=== PATIENT | male | born 1950 | race Caucasian/White ===

== ENCOUNTER 2019-04-06 07:39 | Inpatient (IN) ==
--- NOTE | 2019-03-05 15:51 | PAT Medication Instructions ---
Medication Instructions Date of Service March 05, 2019 Home Medications aspirin 81 mg PO QAM cyclobenzaprine 5 mg PO TID PRN hydrocodone-acetaminophen 1 - 2 tab PO Q6H PRN krill oil 1 cap PO QAM lisinopril 20 mg PO QAM lorazepam 0.5 mg PO BID PRN meloxicam 15 mg PO DAILY PRN metoprolol succinate 25 mg PO QAM pantoprazole 40 mg PO QAM tamsulosin 0.4 mg PO QAM ASK your surgeon for instructions meloxicam 15 mg PO DAILY PRN STOP taking 2 weeks before surgery (or as soon as possible if surgery is within 2 weeks) krill oil 1 cap PO QAM DO NOT take the morning of surgery cyclobenzaprine 5 mg PO TID PRN lisinopril 20 mg PO QAM Take morning of surgery With a small sip of water, OTHERWISE NOTHING TO EAT OR DRINK AFTER MIDNIGHT: aspirin 81 mg PO QAM hydrocodone-acetaminophen 1 - 2 tab PO Q6H PRN (okay to take up to 4 hours prior to surgery if needed) lorazepam 0.5 mg PO BID PRN (if needed) metoprolol succinate 25 mg PO QAM pantoprazole 40 mg PO QAM tamsulosin 0.4 mg PO QAM Take evening before surgery cyclobenzaprine 5 mg PO TID PRN (if needed) hydrocodone-acetaminophen 1 - 2 tab PO Q6H PRN (if needed) lorazepam 0.5 mg PO BID PRN (if needed) Other Notes If you have any questions please call us at [phone] or [phone] or [phone] or [phone]
--- NOTE | 2019-03-08 08:39 | Anesthesiology Consultation ---
Date of Service March 08, 2019 Assessment & Plan (1) Encounter for pre-operative examination: CARDIO CLEARANCE 03/15: "Mr. Hollingsworth is cleared at an intermediate cardiac risk for surgery with Dr. White." Chart Review Chart Review: Acceptable Risk for Surgery and Patient seen in Pre Admission Testing Teaching & Discussion Instructed NPO after midnight before surgery, except medications with 15 cc of water. Medication instructions provided according to the PAT guidelines. History Surgery Operation Date: 04/06/19 12:20 Proposed Procedures p Right Total Knee Arthroplasty - Sal White MD Height/Weight Height: 5 ft 11 in Weight: 147.5 kg Allergies Allergy/AdvReac Type Severity Reaction Status Date / Time No Known Allergies Allergy Unverified 03/05/19 14:00 Medications Home Medications Medication Instructions Recorded Confirmed Last Taken aspirin 81 mg PO QAM 03/05/19 03/05/19 Unknown cyclobenzaprine 5 mg PO TID PRN 03/05/19 03/05/19 Unknown hydrocodone-acetaminophen 1 - 2 tab PO Q6H PRN 03/05/19 03/05/19 Unknown krill oil 1 cap PO QAM 03/05/19 03/05/19 Unknown lisinopril 20 mg PO QAM 03/05/19 03/05/19 Unknown lorazepam 0.5 mg PO BID PRN 03/05/19 03/05/19 Unknown meloxicam 15 mg PO DAILY PRN 03/05/19 03/05/19 Unknown metoprolol succinate 25 mg PO QAM 03/05/19 03/05/19 Unknown pantoprazole 40 mg PO QAM 03/05/19 03/05/19 Unknown tamsulosin 0.4 mg PO QAM 03/05/19 03/05/19 Unknown Past Medical History Medical History Anxiety Atrial fibrillation Rate controlled on BB. On ASA 81mg. CHADSVASC is 2 but Pt declines anticoagulation 2/2 bleeding hemorrhoids. BPH (benign prostatic hyperplasia) Degenerative disc disease Hyperlipidemia BORDERLINE Hypertension Morbid obesity Osteoarthritis Spinal stenosis Past Family History Family History Mother Family hx of colon cancer Past Surgical History Surgical History Fusion of spine CERVICAL History of arthroscopy RT KNEE History of cardiac cath 2 YEARS AGO (NO STENTS) [facility] History of cataract surgery RT History of colonoscopy History of tonsillectomy History of tooth extraction Past Anesthesia History No Hx of Anesthesia Complications and No Family Hx of Anesthesia Complications History of PONV No Motion Sickness Screening History of Motion Sickness: Yes Social History Smoking Status: Former smoker Do You Dip or Chew Tobacco: No Smoking End Date: 10 YEARS AGO Hx Alcohol Use: Yes Alcohol type: beer alcohol intake frequency: a few times a month Hx Substance Use: No substance use type: does not use Exercise / Class Metabolic Activity III < 4 Walking/Shop/Light housework (+mild SOB with 1 FOS occ, denies CP) Review of Systems Pt denies any recent chest pain, shortness of breath, palpitations, cough, fever or URI. Physical Exam Vital Signs BP: 134/98 P: 77bpm SPO2: 95% RA T: 97.9 F R: 18 Constitutional + morbidly obese ENMT Mouth: + dental restorations (partial upper and lower); no chipped teeth and no loose teeth Thyromental Distance: < 3.5 Finger Breadths (3) Mallampati Class: III Neck + short neck, + thick neck and + limited neck extension (limited due to fusion) Respiratory normal respiratory effort Auscultation: lungs clear to auscultation bilaterally Cardiovascular Rate/Rhythm: regular rate; + abnormal rhythm Heart Sounds: + murmur (I/ systolic RSB) Vessels: no carotid bruit Extremities: no edema Irregularly irregular rhythm, distant heart sounds. Testing Electrocardiogram Date: 03/08/19 Findings: + AFIB @ (85) Chest X-Ray Date: 03/08/19 Findings: + NAD Echocardiogram Date: 03/26/19 EF: 55-60% Normal LV size and systolic function. Moderate concentric LVH. Grade 1 diastolic dysfunction. Normal RV size and function. Mild right atrial enlargement. No significant valvular stenosis or regurgitation. Stress Test Date: 03/23/19 Type: nuclear Pharmacologic stress nuclear study is normal. Normal SPECT perfusion imaging. No significant ischemia detected. No evidence of infarct. Stress EKG test results normal. LV function not assessed due to arrhythmia. Cardiac Catheterization Date: 05/22/17 Left main distal 40% stenosis. LAD is a medium to large sized vessel, calibrated with proximal eccentric focal area of 40 to 50% stenosis. Left circ umflex artery is medium size vessel with focal area of 40% stenosis. RCA is a medium to large sized vessel, dominant with diffuse long mid 50% stenosis followed by another area of 70% stenosis. Impression: Moderate three-vessel CAD with left ventricular ejection fraction of 60%. Plan: medical therapy. Laboratory Results 03/08/19 09:11 03/08/19 09:11 PT 10.2 Seconds (9.0-12.0) 03/08/19 09:11 INR 1.0 (0.9-1.1) 03/08/19 09:11 APTT 30.2 Seconds (21.0-31.0) 03/08/19 09:11 Blood Type O Positive 03/08/19 09:11 Antibody Screen NEGATIVE 03/08/19 09:11
--- NOTE | 2019-03-08 10:02 | XRay Report ---
XR chest 2V routine CLINICAL HISTORY: Pre-op, h/o tobacco use, SOB COMPARISON STUDY: No previous studies for comparison. FINDINGS: Postoperative findings within the cervical spine are incidentally noted. There is no pneumo thorax or pleural effusion. There is no consolidation or evidence for pulmonary edema. Cardiac size i s at the upper limits of normal. IMPRESSION: No acute cardiopulmonary findings. Electronically signed by: Suresh Cash M.D. 03/08/2019 10:01 AM
[2019-03-08 10:56] LABS: Basophils # (auto) 0.05 K/uL (0-0.2); Basophils % (auto) 0.8 %; Eosinophils # (auto) 0.19 K/uL (0-0.5); Eosinophils % (auto) 3.2 %; Immature Granulocytes # (auto) 0.02 K/uL (0.00-0.02); Immature Granulocytes % (auto) 0.3 %; Lymphocytes # (auto) 1.26 K/uL (1.2-3.4); Mean Corpuscular Hgb Conc 34.9 g/dL (32-36); Mean Corpuscular Volume 89.6 fL (80-100); Mean Platelet Volume 10.2 fL (7.4-10.4); Monocytes # (auto) 0.49 K/uL (0.11-0.59); Monocytes % (auto) 8.2 %; Neutrophils % (auto) 66.5 %; Platelet Count 257 K/uL (130-400); RDW Coefficient of Variation 13.4 % (11.5-14.5); RDW Standard Deviation 43.6 fL (36.4-46.3); White Blood Count 6.01 K/uL (4.8-10.8)
[2019-03-08 11:18] LABS: Partial Thromboplastin Ratio 1.1; Partial Thromboplastin Time 30.2 Seconds (21.0-31.0); Prothrombin Time 10.2 Seconds (9.0-12.0)
[2019-03-08 11:28] LABS: BUN Creatinine Ratio 16.1 (10-20); Calcium 9.1 mg/dl (8.5-10.1); Creatinine Clr Calc Pharmacy 89.6 ml/min; Est GFR (African American) 75.9; Est GFR (Non-African American) 65.5; Potassium 4.4 mmol/L (3.5-5.1)
--- NOTE | 2019-04-03 10:08 | History and Physical Report ---
DATE OF ADMISSION: 04/06/2019 CHIEF COMPLAINT: Right knee pain. HISTORY OF PRESENT ILLNESS: The patient is a 68-year-old gentleman who presents for surgical treatment of his right knee. He has got a long history of right knee problems dating back to a knee arthroscopy back in the . This was done by Dr. Mayberry. He has had on and off pain for the past 10-15 years, but it has gotten worse over the past 4 years. He describes global pain. The more he walks, the more it hurts. His walking tolerance is a couple blocks. He has had the injections which provided temporary relief only. Nothing long lasting. He has nighttime pain. He would like to have his right knee fixed. PAST MEDICAL HISTORY: 1. Hypertension. 2. Anxiety/depression. 3. Obesity with a BMI of 45. 4. Atrial fibrillation. PAST SURGICAL HISTORY: Includes: 1. Neck surgery in 2007. 2. Pinched nerve surgery in 1986. 3. Right knee arthroscopy in . 4. Tonsillectomy. ALLERGIES: None. CURRENT MEDICINES: 1. Tamsulosin 0.4 mg once a day. 2. Pantoprazole 40 mg a day. 3. Lisinopril 20 mg. 4. Metoprolol 25 mg. 5. Baby aspirin 81 mg. 6. Hydrocodone 2-4 tablets a day for his back. 7. Cyclobenzaprine 5 mg a day. 8. Meloxicam 15 mg. 9. Lorazepam 0.5 mg a day. 10. Eliquis - 5mg per day SOCIAL HISTORY: A 68-year-old male patient from [place]. He is retired. He is . Rare alcohol intake. Does not smoke. FAMILY HISTORY: Significant for heart disease and bowel cancer. REVIEW OF SYSTEMS: Significant for obesity with a BMI of 45. Denies any chest pain or shortness of breath. No history of DVT or PE. No known bleeding problems. He does have musculoskeletal aches and pains. PHYSICAL EXAMINATION: GENERAL: Reveals a very large middle-aged male. Looks to be in reasonably good health. HEENT: Benign. NECK: Supple. No lymphadenopathy. LUNGS: Clear to auscultation. HEART: Regular rate and rhythm. ABDOMEN: Soft, nontender, nondistended. EXTREMITIES: Grossly neurovascularly intact except as follows: Examination of the right knee reveals patient walks with bit of a limp. He has got varus alignment to his knee with a varus thrust with weightbearing. Small knee effusion. He is tender over the medial joint line. Range of motion is 5-120. No instability. No pain with hip motion. X-RAYS: X-ray of the right knee reviewed. Shows advanced medial compartment arthritis. He has got complete loss of his medial joint space. He has subchondral sclerosis. He has got osteophytes off the medial femoral condyle and medial tibial plateau. ASSESSMENT: A 68-year-old male with advanced right knee degenerative joint disease with a history of knee arthroscopy many years ago. He has failed conservative treatment and would like to have his right knee replaced. PLAN: We will take him to the operating room and do a right total knee replacement. The risks and benefits of this procedure were explained to the patient including but not limited to DVT, PE, , infection, neurological injury, vascular injury, bleeding problem, pain, limited range of motion, stiffness, failure to relieve symptoms, incomplete relief of symptoms, need for further surgery in future, fracture, leg length inequality, nerve palsy, etc. The patient understands and desires to proceed. Informed consent was obtained. We did talk to the patient about holding his lisinopril the morning of surgery and make sure he takes the metoprolol. He will stop Eliquis 72 hours pre-op. He is planning to be discharged to home. MARIA VICTORIA
[~2019-04-06 07:39] MED LIST: ACETAMINOPHEN 500 MG TAB PO SCH; BUPIVACAINE 0.5 % 5 MG/1 ML PF 10ML VIAL ONE; BUPIVACAINE LIPOSOME/PF 266 MG, BUPIVACAINE/EPINEPHRINE 50 ML, SODIUM CHLORIDE 0.9% 30 ... INFIL SCH; CEFAZOLIN 3000MG 65 ML IV SCH; FAMOTIDINE 20 MG TAB PO SCH; GABAPENTIN 300 MG PO SCH; LR 500ML BOLUS, THEN 15ML/HR IV SCH; LR 60ML/HR IV SCH; METOCLOPRAMIDE HCL 10 MG TABLET PO SCH; ROPIVACAINE 0.5% 5 MG/ML 30 ML VIAL ONE
--- OUTSIDE RECORDS SUMMARY | 2019-04-06 07:46 | External Medical Summary | Continuity of Care Document ---
:1950 Author Name Ismael Saba Address Unavailable Unavailable , Care Team Providers Name Role Phone Baudilio Saba, I. 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) BPH (benign prostatic hypertrophy) with urinary obstruction (600.01) (N40.1) Slowing of urinary stream (788.62) (R39.198) Nocturia (788.43) (R35.1) Allergies and Adverse Reactions No Known Drug Allergies (Allergy) Medications HYDROcodone-Acetaminophen 5-325 MG Oral Tablet Refills: 0 LORazepam 0.5 MG Oral Tablet Refills: 0 Toprol XL 25 MG Oral Tablet Extended Release 24 Hour Refills: 0 Vitamin D TABS Refills: 0 Aspirin 81 TBEC Refills: 0 Procedures History of Neck Surgery Status: Complete d History of Knee Surgery Status: Complete d Immunizations Immunizations not documented Family History Father Family history of cardiac disorder (V17.49) (Z82.49) Status: Active Family history of hypertension (V17.49) (Z82.49) Status: Act fidel Mother Family history of hypertension (V17.49) (Z82.49) Status: Act fidel Family history of Bowel cancer (159.0) (C26.0) Status: Activ e Social History - Smoking Status Former smoker Interventions Follow-ups/ReferralsFollow-up visit in 1 month; Done: 09 Apr 2017 Plan of Treatment Planned Observations Planned Goals not documented Results No Known Results Results not documented Encounters Appointment; Urology, Room 8 09-Apr-2017 15:30 Encounter Diagnosis: Problem not documented Appointment; Robbie Astudillo M.D. 09-Apr-2017 15:40 Encounter Diagnosis: Problem not documented
--- NOTE | 2019-04-06 08:53 | History & Physical Bridge Note ---
Date of Service April 06, 2019 History & Physical Bridge Note I have examined the patient, reviewed the History & Physical and in the interval since the performance of the History & Physical I have noted the following changes of clinical significance: no changes noted
[2019-04-06] MEDS ORDERED: MIDAZOLAM HCL 1 MG/ML 2ML VIAL ONE ×3 (09:45→12:55)
[2019-04-06] MEDS ORDERED: fentaNYL citrate 100 MCG/2 ML VIAL ONE ×2 (09:45→13:46)
[2019-04-06] MEDS ORDERED: BUPIVACAINE LIPOSOME 1.3% 266 MG/20 ML VIAL ONE (11:26)
[2019-04-06] MEDS ORDERED: SODIUM CHLORIDE 0.9% PF 50 ML VIAL ONE (11:26)
[2019-04-06] MEDS ORDERED: EPINEPHrine INJ 1 MG/ML AMP ONE (11:27)
[2019-04-06] MEDS ORDERED: BUPIVACAINE 0.25% 30 ML VIAL ONE (11:27)
[2019-04-06] MEDS ORDERED: BACITRACIN INJ 50,000 UNIT VIAL ONE (11:27)
[2019-04-06] MEDS ORDERED: PROPOFOL IV EMULSION 10 MG/ML 20 ML VIAL IV ONE (11:51)
[2019-04-06] MEDS ORDERED: PHENYLEPHRINE 100MCG/ML 5ML SYR ONE (12:05)
[2019-04-06] MEDS ORDERED: ePHEDrine sulfate 50 MG/ML SYR ONE (12:12)
--- NOTE | 2019-04-06 13:23 | Post Operative Brief Note ---
Immediate Post Op Note v1 Date of Surgery April 06, 2019 Pre & Post Diagnosis Operation Date: 04/06/19 10:40 Pre-Op Diagnosis: Right Knee- Advanced Degenerative Joint Disease Post-Op Diagnosis: Right Knee- Advanced Degenerative Joint Disease Procedure Operation Date: 04/06/19 10:40 Actual Procedures p Right Total Knee Arthroplasty(Right) - Sal White MD Surgeon Sal White MD Foot Tender Dirk, PAC Estimated Blood Loss 50 Findings Consistent with Post-Op Diagnosis Fluids 1200 cc Specimens Right Knee Drains Gonzalez Catheter (16French gonzalez catheter inserted by Bert Cavazos PA-C without difficulty. Clear yellow urine obtained- Anesthesia to monitor) Anesthesia Type Spinal MAC Complications none Disposition Accompanied Patient To Recovery: No Disposition: Recovery Room
[2019-04-06] MEDS: fentaNYL citrate 100 MCG/2 ML VIAL IV PRN ×2 (13:46→13:51)
[2019-04-06] MEDS ORDERED: ePHEDrine sulfate 50 MG/ML AMP IV PRN (13:48)
[2019-04-06] MEDS ORDERED: ATROPINE SULFATE 0.1 MG/ML 10ML SYR IV PRN (13:48)
[2019-04-06] MEDS ORDERED: HYDROmorphone INJ 2 MG/ML SYR/VIAL IV PRN (13:48)
--- NOTE | 2019-04-06 14:00 | XRay Report ---
XR knee RT 2V routine CLINICAL HISTORY: Surgical Post Op COMPARISON: 03/05/2019 DISCUSSION: There are postsurgical changes of a total right knee arthroplasty and patellar resurfacin g. There is air within soft tissues consistent with recent surgery. There are overlying skin trae. The femoral and tibial components appear well seated. IMPRESSION: Postsurgical changes of a total right knee arthroplasty Electronically signed by: Rhys Agrawal M.D. 04/06/2019 1:59 PM
[2019-04-06] MEDS ORDERED: TAMSULOSIN HCL 0.4 MG CAP PO PRN (14:38)
[2019-04-06] MEDS ORDERED: BISACODYL 10 MG SUPP PR PRN (14:38)
[2019-04-06] MEDS ORDERED: CYCLOBENZAPRINE HCL 5 MG TAB PO PRN (14:38)
[2019-04-06] MEDS ORDERED: ALUMINUM/MAGNESIUM SUSP 30 ML UDC PO PRN (14:38)
[2019-04-06] MEDS ORDERED: MAGNESIUM HYDROXIDE SUSP 30 ML UDC PO PRN (14:38)
[2019-04-06] MEDS ORDERED: NALOXONE HCL 0.4 MG/1 ML VIAL/CARP IV PRN (14:38)
[2019-04-06] MEDS ORDERED: LORazepam 0.5 MG TAB PO PRN (14:38)
[2019-04-06] MEDS ORDERED: OXYCODONE HCL IR 5 MG TAB (IMMEDIATE RELEASE) PO PRN (14:38)
[2019-04-06] MEDS ORDERED: ONDANSETRON INJ 2 MG/ML 2 ML VIAL IV PRN (14:38)
[2019-04-06] MEDS ORDERED: METOCLOPRAMIDE HCL INJ 5 MG/ML 2 ML VIAL IV PRN (14:38)
--- NOTE | 2019-04-06 14:41 | Anesthesiology Progress Note ---
Date of Service April 06, 2019 Anesthesia Post Procedure Vital Signs Vital Signs: Temp Pulse Pulse Resp BP BP Pulse Ox 04/06/19 14:15 36.3 C L 73 16 129/88 98 04/06/19 14:05 78 14 115/78 99 04/06/19 13:55 80 13 145/89 H 99 04/06/19 13:45 76 16 133/90 100 04/06/19 13:35 80 14 117/87 100 04/06/19 13:29 36.0 C L 75 17 141/77 H 97 04/06/19 08:37 36.8 C 92 H 20 127/90 96 Pain Intensity Right Knee: Pain Intensity: 4 Transfer of Care Handoff Completed per policy Notes Mental Status: alert / awake / arousable and participated in evaluation Patient Amnestic to Procedure: Yes Nausea / Vomiting: adequately controlled Pain: adequately controlled Airway Patency, RR, SpO2: stable & adequate BP & HR: stable & adequate Hydration State: stable & adequate Neuraxial Anesthesia: was administered and sensory block is resolving Anesthetic Complications: no major complications apparent
[2019-04-06] MEDS ORDERED: HYDROmorphone INJ 0.5 MG/0.5 ML SYR ONE (14:52)
[2019-04-06] MEDS: HYDROmorphone INJ 0.5 MG/0.5 ML SYR IV PRN ×3 (14:55→23:25)
[2019-04-06] MEDS: SODIUM CHLORIDE 0.9% 1000ML 1,000 ML IV SCH ×2 (18:05→23:25)
[2019-04-06] MEDS: KETOROLAC TROMETHAMINE 15 MG/ML VIAL IV SCH ×2 (18:05→23:25)
[2019-04-06] MEDS: ASCORBIC ACID 500 MG TAB PO SCH (18:40)
[2019-04-06] MEDS: FERROUS GLUCONATE 324 MG TAB PO SCH (18:40)
[2019-04-06] MEDS: TAPENTADOL HCL ER 50 MG TABCR PO SCH (21:12)
[2019-04-06] MEDS: CEFAZOLIN 2000MG 2,000 MG/15 ML SYR IV SCH (21:13)
[2019-04-06] MEDS: DOCUSATE SODIUM 100 MG CAP PO SCH (21:15)
[2019-04-06] MEDS: ACETAMINOPHEN 500 MG TAB PO SCH (21:15)
--- NOTE | 2019-04-06 21:26 | Progress Note ---
DATE: 04/06/2019 SUBJECTIVE: A 68-year-old gentleman postop from a right knee replacement. He is already having a significant amount of pain in his right leg. The nurses have tried several modalities. He is about to get a dose of Toradol. No chest pain or shortness of breath, just knee pain. OBJECTIVE: VITAL SIGNS: Temperature is 36.4. Vital signs stable. Little bit hypertensive with blood pressure 153/90. LUNG: Exam is clear to auscultation. HEART: Regular rate and rhythm. ABDOMEN: Soft, nontender, nondistended. EXTREMITIES: Grossly neurovascularly intact. Examination of the right leg reveals the leg to be well aligned. Dressing is clean, dry, and intact. He can dorsiflex and plantarflex his foot appropriately. He has got brisk refill. X-RAYS: X-ray of the right knee from recovery room were reviewed. It shows cemented posterior stabilized total knee arthroplasty. Components looked to be in acceptable position. No signs of problems. ASSESSMENT: A 68-year-old gentleman with atrial fibrillation postop from a right knee replacement. He is doing okay. He has been taking narcotics preoperatively, which is going to make pain control bit more difficult. He is already having pain shortly after surgery. PLAN: 1. DVT prophylaxis including thigh-high TEDs, SCDs, and put him back on his preoperative anticoagulation at slightly lower dose starting 24 hours postop and increase to full dose 3 days postop. 2. PT/OT. Weight bear as tolerated. Right total knee protocol. 3. Pain control. We are going to adjust his pain meds and change of oxycodone to Dilaudid. We are going to put him on Toradol for 24 hours until we will start his anticoagulation and we will also put him on Nucynta. He is also on baseline Tylenol. 4. IV antibiotics x24 hours. 5. Disposition. He is planned to be discharged to home. He will likely have home health for the first week or two. MARIA VICTORIA
[2019-04-06] MEDS: SENNA 8.6 MG TAB PO SCH (21:31)
[2019-04-06] MEDS: HYDROmorphone HCL 2 MG TAB PO PRN (22:21)
--- NOTE | 2019-04-06 23:37 | Operative Report ---
DATE OF OPERATION: 04/06/2019 SURGEON: Sal White MD X [employer] W[employer]ING TECHNICIAN: DARIAN Byrne PREOPERATIVE DIAGNOSIS: Right knee degenerative joint disease. POSTOPERATIVE DIAGNOSIS: Right knee degenerative joint disease. PROCEDURE PERFORMED: Right cemented posterior stabilized total knee arthroplasty. COMPLICATIONS: None. ESTIMATED BLOOD LOSS: 50 mL. FLUID REPLACEMENT: 1200 mL crystalloid fluid replacement. TOURNIQUET TIME: 62 minutes at 350 mmHg. ANESTHESIA: Spinal with adductor canal block. DRAINS: None. SPECIMENS: Right knee sent for pathology. OPERATIVE INDICATIONS: The patient is a 68-year-old gentleman who has had a long history of right knee pain and discomfort. He underwent a knee arthroscopy back in the 1970s. Over the past 4 years, he developed markedly increased pain and discomfort and it is unresponsive to conservative care. He elected to proceed with total knee arthroplasty. OPERATIVE FINDINGS: Operative findings revealed advanced right knee DJD. A pretty extensive grade 4 [id number] disease that is primarily in the medial compartment. Some moderate patellofemoral disease with some spotty lateral compartment disease. A large knee joint effusion. He had a varus deformity to his knee. OPERATIVE IMPLANTS: Operative implants consisted of: 1. A Biomet Vanguard size 75 right posterior stabilized femoral component. 2. A Biomet size 79 tibial tray. 3. A 10 mm posterior stabilized polyethylene insert. 4. A 34 x 8.5 all poly patella. OPERATIVE PROCEDURE: The patient was taken to the operating room, identified and placed on the operative table in supine position. All contact areas were appropriately padded. IV antibiotics were provided by anesthesia team. A spinal anesthetic and adductor canal block had been provided in the holding area. Mitchell catheter was placed in sterile fashion. A right thigh tourniquet was then placed and the right lower extremity was then prepped and draped in usual sterile fashion. The right leg was elevated and exsanguinated with Esmarch and tourniquet was placed at 350 mmHg. An anterior approach to the right knee was then performed through a longitudinal incision centered over the patella. Sharp dissection was carried through the subcutaneous tissue down to the level of the extensor mechanism. A medial parapatellar arthrotomy incision was made. Some subperiosteal dissection was carried out medially. The fat pad was resected from beneath the patellar tendon. The lateral patellofemoral ligament was released. The patella was everted and knee was flexed. The osteophytes were taken off the distal femur. The ACL and PCL were then released from the distal femur. The tibia subluxated anteriorly. The external tibial alignment jig was then placed in the anterior face of the tibia and adjusted 14 mm medially. Proximal tibial cut was made to remove about a millimeter or two of bone from the most deficient aspect of the medial tibial plateau. Some osteophytes were taken off medial and posteromedially. Tibia was sized to a size 79. Attention was then drawn to the femur. The distal femur was entered with a sharp drill bit. Intramedullary canal was suctioned. A right 6-degree valgus cutting guide was placed. The distal femoral cutting block was pinned in place. Distal femoral cut was made to take an additional 3 mm of bone off the distal femur. Femur was then sized to a size 75. The AP cutting block was pinned parallel to the epicondylar axis, which was 5 degrees of external rotation. The anterior cut, anterior chamfer, posterior cut, posterior chamfer cuts were made. Box cutting guide was placed and adjusted slightly lateral and the box cut was made. The knee was flexed. The remnants of the medial and lateral menisci were excised. The osteophytes were taken off the posterior aspect of the femur. A trial femoral component was placed. The tibial tray was pinned in maximum external rotation and drill and stem punch were used to create a defect in the proximal tibia for the tibial tray. The knee was then trialed and the 10 mm insert fit most appropriately. Attention was then drawn to patella. The patella was cleaned of all soft tissues. Patella thickness measured 23 mm in thickness, was cut down to 14. It was sized to a size 34 patella. Lug holes were drilled for a 34 patella. Lateral osteophyte was removed. Patella button was placed. Knee was taken through range of motion and patella tracked nicely with no thumbs test. Attention was then drawn toward placement of permanent components. All trial components were removed. A bone plug was placed in the distal femur to limit blood loss. A double batch of Palacos G cement was mixed. A Biomet Vanguard size 75 right posterior stabilized femoral component, size 79 tibial tray, a 10 mm posterior stabilized polyethylene insert, and a 34 x 8.5 all poly patella were then cemented in place. Knee was brought out into full extension until cement hardened. A final cement check was then performed. Pericapsular tissues were injected with a total of 100 mL of combination of 20 mL of Exparel, 30 mL of normal saline, 50 mL of 0.25% Marcaine with epinephrine. The patient did not get tranexamic acid due to his history of atrial fibrillation. The tourniquet was then let down for a final tourniquet time 62 minutes. Hemostasis was assured using electrocautery. The extensor mechanism was then closed with a combination of #1 PDS suture and #1 Vicryl suture in a [id number] fashion. The extensor mechanism was checked and found to be intact. The subcutaneous tissues were then closed with 2-0 Dexon suture in a buried interrupted fashion. The skin was closed with skin trae. Leg was then cleaned and dried and a sterile dressing of Xeroform, 4 x 4's, sterile cast padding, and Rodri bandage were applied. The patient was then transferred to the recovery room in stable condition. The patient tolerated the procedure well with no complications. All needle and sponge counts were correct at the end of the operation. I attest to the content of the Intraoperative Record and any orders documented therein. Any exception s are noted below.
[2019-04-07] MEDS: CEFAZOLIN 2000MG 2,000 MG/15 ML SYR IV SCH (04:49)
[2019-04-07] MEDS: HYDROmorphone INJ 0.5 MG/0.5 ML SYR IV PRN ×4 (04:50→19:19)
[2019-04-07] MEDS: ACETAMINOPHEN 500 MG TAB PO SCH ×3 (04:50→21:24)
[2019-04-07] MEDS: KETOROLAC TROMETHAMINE 15 MG/ML VIAL IV SCH ×2 (04:50→11:14)
[2019-04-07] MEDS: SODIUM CHLORIDE 0.9% 1000ML 1,000 ML IV SCH (05:08)
[2019-04-07 06:14] LABS: Hematocrit (blood only) 35.3 % (42-52); Hemoglobin 12.3 g/dL (14.0-18.0); Mean Corpuscular Hgb Conc 34.8 g/dL (32-36); Mean Corpuscular Volume 86.9 fL (80-100); Mean Platelet Volume 9.3 fL (7.4-10.4); Platelet Count 198 K/uL (130-400); RDW Coefficient of Variation 13.2 % (11.5-14.5); RDW Standard Deviation 42.1 fL (36.4-46.3); Red Blood Count 4.06 M/uL (4.7-6.1); White Blood Count 6.99 K/uL (4.8-10.8)
[2019-04-07 06:53] LABS: BUN Creatinine Ratio 17.7 (10-20); Calcium 7.9 mg/dl (8.5-10.1); Est GFR (African American) 75.1; Est GFR (Non-African American) 64.8; Potassium 4.1 mmol/L (3.5-5.1)
[2019-04-07] MEDS: HYDROmorphone HCL 2 MG TAB PO PRN ×3 (07:28→17:42)
[2019-04-07] MEDS: METOPROLOL SUCC 25MG EXT REL TAB PO SCH (07:29)
[2019-04-07] MEDS: DOCUSATE SODIUM 100 MG CAP PO SCH ×2 (07:29→21:24)
[2019-04-07] MEDS: FERROUS GLUCONATE 324 MG TAB PO SCH ×2 (07:29→17:38)
[2019-04-07] MEDS: LISINOPRIL 20 MG TAB PO SCH (07:29)
[2019-04-07] MEDS: TAMSULOSIN HCL 0.4 MG CAP PO SCH (07:29)
[2019-04-07] MEDS: ASCORBIC ACID 500 MG TAB PO SCH ×2 (07:29→17:38)
[2019-04-07] MEDS: MULTIVITAMIN TAB PO SCH (07:30)
[2019-04-07] MEDS: ASPIRIN 81 MG ECTAB PO SCH (07:30)
[2019-04-07] MEDS: PANTOprazole 40 MG TAB PO SCH (07:30)
[2019-04-07] MEDS: TAPENTADOL HCL ER 50 MG TABCR PO SCH ×2 (07:33→21:24)
[2019-04-07] MEDS ORDERED: NON-FORMULARY MEDICATION (Krill Oil 1 CAP) PO SCH (09:00)
--- NOTE | 2019-04-07 10:38 | Progress Note ---
DATE: 04/07/2019 SUBJECTIVE: A 68-year-old gentleman postop day 1 from a right knee replacement. Quite a bit of pain overnight. Doing a little bit better since we adjusted his pain medicines. Denies any chest pain or shortness of breath. Not feeling dizzy or lightheaded. OBJECTIVE: VITAL SIGNS: Temperature 37.1. Vital signs stable. PHYSICAL EXAMINATION: GENERAL: Reveals a pleasant, middle-aged male. He is lying in bed, does not look too uncomfortable. EXTREMITIES: Examination of the right leg reveals the leg to be well aligned. Dressing is clean, dry, and intact. He can dorsiflex and plantarflex his foot appropriately. He is neurologically intact. LABORATORY DATA: Hemoglobin is 12.3. Hematocrit 35.3. Electrolytes are stable. ASSESSMENT: A 68-year-old gentleman with a history of AFib postop day 1 from a right knee replacement, doing okay. Quite a bit of pain last evening, but we will adjust his meds. He is little bit better but still pretty painful. He does have a history of narcotic use before surgery. PLAN: 1. DVT prophylaxis including thigh-high TEDs, SCDs, and start back on his Eliquis 24 hours postop. We will start him on his prophylactic dose initially. I will change him to a therapeutic dose, postop day #3. 2. PT/OT. Weight bear as tolerated. Right total knee protocol. 3. Pain control. Doing okay with current pain regimen. We will use Tylenol, Toradol for 24 hours, and Dilaudid. 4. Disposition: He is planning to be discharged to home with some home health once adequately recovered.
[2019-04-07] MEDS: APIXABAN 2.5 MG TAB PO SCH (13:11)
[2019-04-07] MEDS: SENNA 8.6 MG TAB PO SCH (21:24)
[2019-04-08] MEDS: HYDROmorphone INJ 0.5 MG/0.5 ML SYR IV PRN ×2 (00:09→07:52)
[2019-04-08] MEDS: HYDROmorphone HCL 2 MG TAB PO PRN ×3 (05:23→13:14)
[2019-04-08] MEDS: ACETAMINOPHEN 500 MG TAB PO SCH ×2 (05:25→13:14)
[2019-04-08] MEDS: APIXABAN 2.5 MG TAB PO SCH (05:30)
[2019-04-08] MEDS: ASCORBIC ACID 500 MG TAB PO SCH (07:49)
[2019-04-08] MEDS: METOPROLOL SUCC 25MG EXT REL TAB PO SCH (07:49)
[2019-04-08] MEDS: TAMSULOSIN HCL 0.4 MG CAP PO SCH (07:49)
[2019-04-08] MEDS: MULTIVITAMIN TAB PO SCH (07:49)
[2019-04-08] MEDS: DOCUSATE SODIUM 100 MG CAP PO SCH (07:49)
[2019-04-08] MEDS: ASPIRIN 81 MG ECTAB PO SCH (07:49)
[2019-04-08] MEDS: FERROUS GLUCONATE 324 MG TAB PO SCH (07:49)
[2019-04-08] MEDS: PANTOprazole 40 MG TAB PO SCH (07:49)
[2019-04-08] MEDS: LISINOPRIL 20 MG TAB PO SCH (07:49)
[2019-04-08] MEDS: TAPENTADOL HCL ER 50 MG TABCR PO SCH (07:52)
--- NOTE | 2019-04-08 07:53 | Progress Note ---
DATE: 04/08/2019 SUBJECTIVE: A 68-year-old gentleman postop day 2 from a right knee replacement. He is doing a little bit better this morning. Pain is a little bit better. It has been slow. No chest pain or shortness of breath. Not feeling dizzy or lightheaded. OBJECTIVE: VITAL SIGNS: Temperature 36.8. Vital signs stable. GENERAL: Physical examination shows large, middle-aged male. He is lying in bed. Looks reasonably comfortable. EXTREMITIES: Examination of the right leg reveals the leg to be well aligned. Dressing is clean, dry and intact. No significant drainage. Calf is soft and supple. He is neurologically intact. ASSESSMENT: A 68-year-old gentleman postop day 2 from a right knee replacement, doing okay. Pain control has been a bit of an issue seems to be getting a little bit better daily. PLAN: 1. DVT prophylaxis including thigh-high TEDs, SCDs, and back on his Eliquis. 2. PT/OT. Weight bear as tolerated. Right total knee protocol. 3. Pain control. Doing okay with current pain regimen. Seems to be getting a little bit better. Will continue the Tylenol and Dilaudid. He cannot really take anti-inflammatories any longer due to the Eliquis. 4. Disposition: Plan to discharge to home with some home health later today.
--- NOTE | 2019-04-13 17:02 | Discharge Summary ---
ADMITTING PHYSICIAN AND SURGEON: Dr. Sal White. ADMITTING DIAGNOSIS: Right knee degenerative joint disease. SURGERY PERFORMED: Right total knee arthroplasty. SECONDARY DIAGNOSES: Hypertension, anxiety, depression, obesity, atrial fibrillation. CONSULTS: None obtained. HISTORY AND PHYSICAL EXAMINATION: Well documented in the patient's chart. HOSPITAL COURSE: The patient was admitted on 04/06/2019 underwent total knee arthroplasty, tolerated the procedure well with no complications. He was transferred to the PACU postoperatively and later to the orthopedic for further care. He was given Ancef for antibiotic prophylaxis, MARCELA stockings, SCDs and Eliquis for DVT prophylaxis. Hemoglobin, hematocrit and vital signs were monitored during his hospital stay and remained stable, did not require any blood transfusions. There were no complications. By postoperative day 2, he was tolerating a regular diet, pain was controlled with oral pain medicine. He was participating in physical therapy. On postop day 2, he was discharged and transferred to a rehab facility. He was given printed discharge instructions as well as new prescriptions for extra strength Tylenol and hydromorphone. Continue his home medication with exception of hydrocodone/acetaminophen, which he was told to stop. Continue physical therapy, weightbearing as tolerated, stockings. Follow up in approximately 2 weeks postop or sooner if there are any problems or concerns.
== END 2019-04-08 14:51 | DRG 470 ==
LOC: ASU 07:39 → 3E 13:28